=== PATIENT | female | born 1995 | race American Indian/Alaskan Native ===

== ENCOUNTER 2018-12-12 20:33 | Emergency (ER) | payer SELFPAY ==
[2018-12-12 21:48] VITALS: BP 124/84
--- NOTE | 2018-12-12 21:48 | Event Note ---
ED Screening Note Date of service: 12/12/18 Time: 21:47 ED Screening Note: This initial assessment/diagnostic orders/clinical plan/treatment(s) is/are subject to change based on patients health status, clinical progression and re- assessment by fellow clinical providers in the ED. Further treatment and workup at subsequent clinical providers discretion. Patient/guardian urged not to elope from the ED as their condition may be serious if not clinically assessed and managed. Initial orders include:
[2018-12-12] MEDS ORDERED: BOOSTRIX IM ONE ×2 (21:50→21:53)
--- NOTE | 2018-12-12 21:53 | Emergency Department Report ---
- General Chief complaint: Animal Bite Stated complaint: SWOLLEN RIGHT LEG FROM AN INSECT BITE Time Seen by Provider: 12/12/18 21:47 Source: patient Mode of arrival: Ambulatory Limitations: No Limitations - History of Present Illness Initial comments: 23 y/o female comes in for a bite on her right inner thigh times 4 days. Has been draining pus and blood. No fever. No meds NKDA. No PMH. MD complaint: insect bite/sting Onset/Timin -: days(s) Tetanus Up to Date: no Location: RLE Severity: moderate Quality: burning, aching Consistency: constant Improves with: none Worsens with: palpation Context: none Associated symptoms: denies other symptoms Treatments Prior to Arrival: OTC topical medication - Related Data Previous Rx's Medication Instructions Recorded Last Taken Type Ibuprofen [Motrin 600 MG tab] 600 mg PO Q8H PRN #15 tablet 12/12/18 Unknown Rx cephALEXin [Keflex] 500 mg PO Q12HR #20 cap 12/12/18 Unknown Rx Allergies Allergy/AdvReac Type Severity Reaction Status Date / Time No Known Allergies Allergy Unverified 12/12/18 21:07 Abscess Boil HPI - HPI Chief Complaint: Animal Bite Stated Complaint: SWOLLEN RIGHT LEG FROM AN INSECT BITE Time Seen by Provider: 12/12/18 21:47 Home Medications: Previous Rx's Medication Instructions Recorded Last Taken Type Ibuprofen [Motrin 600 MG tab] 600 mg PO Q8H PRN #15 tablet 12/12/18 Unknown Rx cephALEXin [Keflex] 500 mg PO Q12HR #20 cap 12/12/18 Unknown Rx Allergies/Adverse Reactions: Allergies Allergy/AdvReac Type Severity Reaction Status Date / Time No Known Allergies Allergy Unverified 12/12/18 21:07 ED Review of Systems ROS: Stated complaint: SWOLLEN RIGHT LEG FROM AN INSECT BITE Other details as noted in HPI Comment: All other systems reviewed and negative ED Past Medical Hx - Past Medical History Previous Medical History?: Yes Hx Asthma: Yes (as a child) - Surgical History Past Surgical History?: No - Social History Smoking Status: Current Every Day Smoker Substance Use Type: Alcohol, Marijuana - Medications Home Medications: Home Medications Medication Instructions Recorded Confirmed Last Taken Type Ibuprofen [Motrin 600 MG tab] 600 mg PO Q8H PRN #15 tablet 12/12/18 Unknown Rx cephALEXin [Keflex] 500 mg PO Q12HR #20 cap 12/12/18 Unknown Rx ED Physical Exam - General Limitations: No Limitations General appearance: alert, in no apparent distress - Head Head exam: Present: atraumatic, normocephalic - Eye Eye exam: Present: normal appearance - ENT ENT exam: Present: mucous membranes moist - Neurological Exam Neurological exam: Present: alert, oriented X3 - Psychiatric Psychiatric exam: Present: normal affect, normal mood - Expanded Skin Exam Expanded Type of lesion: Present: bite/sting Distribution of rash: RLE (inner thigh) Description of rash: Present: tenderness, erythematous, other (escar in the middle) ED Course Vital Signs 12/12/18 21:46 Temperature 98.7 F Pulse Rate 91 H Respiratory 18 Rate Blood Pressure 124/84 O2 Sat by Pulse 98 Oximetry ED Medical Decision Making - Medical Decision Making 23 y/o female comes in for a bite on her right inner thigh times 4 days. Has been draining pus and blood. No fever. No meds NKDA. No PMH. tetanus given. Will place on Keflex 500 mg bid 20. ibuprofen as need. Critical care attestation.: If time is entered above; I have spent that time in minutes in the direct care of this critically ill patient, excluding procedure time. ED Disposition Clinical Impression: Cellulitis of right thigh Disposition: [id number] TO HOME OR SELFCARE Is pt being admited?: No Does the pt Need Aspirin: No Condition: Stable Instructions: Cellulitis (ED) Additional Instructions: Complete antibiotics as prescribed Over the counter ibuprofen as needed. Follow up with a Primary Care provider id no improvement. Prescriptions: cephALEXin [Keflex] 500 mg PO Q12HR #20 cap Ibuprofen [Motrin 600 MG tab] 600 mg PO Q8H PRN #15 tablet PRN Reason: Pain Referrals: [facility] [Provider Group] - 3-5 Days
== END 2018-12-12 22:00 | disposition home or self-care (01) ==
LOC: ED 20:33
DX: L03.115 Cellulitis of right lower limb (principal); Y93.89 Activity, other specified; Y92.89 Other specified places as the place of occurrence of the external cause; Y99.8 Other external cause status; J45.909 Unspecified asthma, uncomplicated; F17.200 Nicotine dependence, unspecified, uncomplicated; F12.10 Cannabis abuse, uncomplicated; W57.XXXA Bitten or stung by nonvenomous insect and other nonvenomous arthropods, initial encounter
CPT/HCPCS: 90471; 90715; 99282